=== PATIENT | male | born 1995 | race African-American/Black ===

== ENCOUNTER 2021-10-01 09:36 | Emergency (ER) | payer OTHER ==
[2021-10-01 10:17] LABS: BASOPHIL 0.7 % (0-2); HCT 43.1 % (42.0-52.0); HGB 14.2 g/dl (13.2-18.0); LYMPHOCYTE 39.5 % (15-48); MCH 29.8 pg (25.0-31.0); MCHC 32.9 g/dL (32.0-36.0); MCV 90.4 fL (78.0-100.0); MONOCYTE 8.4 % (0-12); MPV 9.7 fL (6.0-9.5); NEUTROPHIL 48.2 % (41-80); NRBC 0; PLT 163 K/uL (150-400); RBC 4.77 M/uL (4.70-6.00); RDW 13.2 % (11.5-14.0); WBC 4.3 K/uL (4.0-10.5)
[2021-10-01 10:28] LABS: INR 1.02 (0.9-1.2); PROTHROMBIN TIME 13.1 SECONDS (11.9-13.9); PTT 29.3 SECONDS (24.9-34.6)
[2021-10-01 10:43] LABS: INFLUENZA A NAA NEGATIVE (NEGATIVE)
[2021-10-01 10:46] LABS: ALBUMIN 3.8 g/dL (3.4-5.0); BILIRUBIN - TOTAL 0.7 mg/dL (0.2-1.0); BUN/CREAT RATIO (CALC) 8.9 RATIO; CREATININE 0.9 mg/dL (0.67-1.17); GLOBULIN (CALCULATION) 3.2 g/dL
[2021-10-01 10:51] LABS: CORONAVIRUS 2019 SARS-COV-2 POSITIVE (NEGATIVE)
[2021-10-01] MEDS ORDERED: AZITHROMYCIN250 MG PO (12:14)
[2021-10-01] MEDS ORDERED: PREDNISONE 20MG20 MG PO (12:14)
== END 2021-10-01 12:55 | disposition home or self-care (01) ==
LOC: FER 09:36
PROVIDERS: Emergency Medicine
DX: U07.1 COVID-19 (principal); E11.9 Type 2 diabetes mellitus without complications; F17.200 Nicotine dependence, unspecified, uncomplicated; Z79.4 Long term (current) use of insulin; Z79.84 Long term (current) use of oral hypoglycemic drugs
CPT/HCPCS: 36415; 71045; 80053; 84484; 85025; 85610; 85730; 93005; J7512; U0002